=== PATIENT | female | born 1985 ===

== ENCOUNTER → 2023-11-20 15:50 | Outpatient (REF) | payer OTHER, SELFPAY | LOC: RAD 15:50 | PROVIDERS: ATTENDING PHYSICIAN Nurse Practitioner Adult Health | DX: N92.4 Excessive bleeding in the premenopausal period (principal) | CPT/HCPCS: 76830; 76856 ==

== ENCOUNTER → 2023-11-29 11:49 | Outpatient (REF) | payer OTHER, SELFPAY | LOC: RAD 11:49 | PROVIDERS: ATTENDING PHYSICIAN Nurse Practitioner Adult Health | DX: N92.4 Excessive bleeding in the premenopausal period (principal); N93.9 Abnormal uterine and vaginal bleeding, unspecified; R93.89 Abnormal findings on diagnostic imaging of other specified body structures | CPT/HCPCS: 58340; 76831 ==